=== PATIENT | female | born 1995 | race Caucasian/White ===

== ENCOUNTER 2017-10-21 18:40 | Observation (INO) | payer SELFPAY ==
--- NOTE | 2017-10-21 18:47 | EDPHY ---
H & P Stated Complaint: Abd pain;denies n/v/d or constipation;denies urinary sxs Time Seen by Provider: 10/21/17 18:46 HPI/ROS: HPI: This is a 22-year-old female presents with Chief Complaint: Abd pain;denies n/v/d or constipation;denies urinary sxs Location: Generalized abdomen Quality: Sharp constant pain Duration: Since this morning around 10:00 a.m. Signs and Symptoms: no fever, + nausea, no vomiting, no hematemesis, no blood in stool, + abdominal bloating, no diarrhea, no back pain, no urinary symptoms, no vaginal bleeding/discharge, no indigestion, no chest pain, no shortness of breath Timing: Sudden, intermittent episodes Severity: Moderate to severe Context: Patient reports that this morning around 10:00 a.m. she started experiencing generalized abdominal pain, that has since moved up into the epigastric area, that comes and goes, but is moderate to severe in intensity, nonradiating accompanied with nausea. Denies vomiting/fever/chills/diarrhea/ vaginal discharge/vaginal bleeding. She was on extended control approximately 2 years ago but has since been off. She has not had a menses in a urine have. Follows with OBGYN and was diagnosed with PCOS but never obtained a pelvic ultrasound. She denies any urinary symptoms. She 1st thought that she was experiencing menstrual cramps but after a few hours the pain started to feel different. Last meal was around noon today. Is able to drink liquids though. No history of abdominal surgery. Modifying Factors: No [id number] medications tried Comment: ROS: see HPI Constitutional: No fever, no chills, no weight loss Eyes: No blurred vision Respiratory: No shortness of breath, no cough Cardiovascular: No chest pain, no palpitations Gastrointestinal: + nausea, no vomiting, no diarrhea, no hematemesis, no blood in stool Genitourinary: No dysuria, no blood in urine Extremities: No myalgias, no edema Neurologic: No weakness, no numbness Skin: No rashes, no petechiae Hematologic: No bruising, no bleeding MEDICAL/SURGICAL/SOCIAL HISTORY: Medical history: Generally healthy. Does not take any regular medications. Surgical history: Denies Social history: Employed. CONSTITUTIONAL: Young adult white female, nontoxic appearance, but appears uncomfortable, awake and alert, no obvious distress HEENT: Atraumatic and normocephalic, PERRL, EOMI. Tympanic membranes clear. Oropharynx clear, no exudate and moist pink mucosa. Airway patent. No lymphadenopathy. No meningismus. Cardiovascular: Normal S1/S2, mild tachycardia, regular rhythm, without murmur rub or gallop. PULMONARY/CHEST: Symmetrical and nontender. Clear to auscultation bilaterally. Good air movement. No accessory muscle usage. ABDOMEN: Soft, nondistended, moderate right lower quadrant tenderness, no rebound, no guarding, no peritoneal signs, no masses or organomegaly. No CVAT. EXTREMITIES: 2/2 pulses, strength 5/5, no deformities, no clubbing, no cyanosis or edema. NEUROLOGICAL: no focal neuro deficits. GCS 15. SKIN: Warm and dry, no erythema. no rash. Good capillary refill. Source: Patient Exam Limitations: No limitations - Personal History LMP (Females 10-55): Unknown Current Tetanus Diphtheria and Acellular Pertussis (TDAP): Yes - Medical/Surgical History Other PMH: healthy - Social History Smoking Status: Former smoker Constitutional: Initial Vital Signs Temperature (C) 36.5 C 10/21/17 18:40 Heart Rate 118 H 10/21/17 18:40 Respiratory Rate 18 10/21/17 18:40 Blood Pressure 147/94 H 10/21/17 18:40 O2 Sat (%) 10 L 10/21/17 18:40 O2 Delivery Mode Room Air Allergies/Adverse Reactions: No Known Allergies Allergy (Unverified 10/21/17 18:44) Home Medications: Medication Instructions Recorded NK [No Known Home Meds] 10/21/17 Medical Decision Making - Diagnostics Imaging Results: Imaging Impressions Abdomen Ultrasound 10/21/17 18:53 Impression: 1. Findings compatible with appendicitis with thickened and dilated appendix well-visualized in the right lower quadrant corresponding with tenderness. 2. Increased number of follicles associated with each ovary suspicious for polycystic ovary syndrome. 3. Normal-appearing uterus. Findings discussed with Grisel Bowens at 20:00 hour, 10/21/2017. Pelvic/Renal Ultrasound 10/21/17 18:53 Impression: 1. Findings compatible with appendicitis with thickened and dilated appendix well-visualized in the right lower quadrant corresponding with tenderness. 2. Increased number of follicles associated with each ovary suspicious for polycystic ovary syndrome. 3. Normal-appearing uterus. Findings discussed with Grisel Bowens at 20:00 hour, 10/21/2017. ED Course/Re-evaluation: Labs, urinalysis, pelvic ultrasound to evaluate for ovarian cysts and limited abdominal ultrasound to evaluate for appendicitis ordered Urine negative. Given 1 L normal saline, IV Zofran, IV morphine 4 mg upon arrival with adequate relief. 1905: Labs reviewed and leukocytosis of 17 K noted. Urinalysis shows no signs of infection. Called by Dr. Nation who advised that ultrasound shows 10 mm appendix that is consistent with appendicitis. IV Invanz ordered 1950: ED decision to consult for admission. Spoke with Dr. Gibson, general surgery, regarding appendicitis. Differential Diagnosis: Abdominal pain in a female including but not limited to ovarian cyst, appendicitis, pelvic inflammatory disease, ovarian torsion, urinary tract infection, and appendicitis. - Data Points Laboratory Results: Laboratory Results 10/21/17 18:55 10/21/17 18:55 10/21/17 10/21/17 10/21/17 18:55 18:55 18:55 WBC RBC Hgb Hct MCV MCH MCHC RDW Plt Count MPV Neut % (Auto) Lymph % (Auto) [place] % (Auto) Eos % (Auto) Baso % (Auto) Nucleat RBC Rel Count Absolute Neuts (auto) Absolute Lymphs (auto) Absolute Monos (auto) Absolute Eos (auto) Absolute Basos (auto) Absolute Nucleated RBC Immature Gran % Immature Gran # Sodium 145 mEq/L H mEq/L (134-144) Potassium 3.9 mEq/L mEq/L (3.5-5.2) Chloride 103 mEq/L mEq/L (97-110) Carbon Dioxide 26 mEq/l mEq/l (22-31) Anion Gap 16 mEq/L mEq/L (8-16) BUN 8 mg/dL mg/dL (7-23) Creatinine 0.7 mg/dL mg/dL (0.6-1.0) Estimated GFR > 60 Glucose 94 mg/dL mg/dL (70-100) Calcium 10.3 mg/dL mg/dL (8.5-10.4) Total Bilirubin 0.5 mg/dL mg/dL (0.1-1.4) Conjugated Bilirubin 0.2 mg/dL mg/dL (0.0-0.5) Unconjugated Bilirubin 0.3 mg/dL mg/dL (0.0-1.1) AST 22 IU/L IU/L (14-46) ALT 27 IU/L IU/L (9-52) Alkaline Phosphatase 94 IU/L IU/L (38-126) Total Protein 8.5 g/dL H g/dL (6.3-8.2) Albumin 5.1 g/dL H g/dL (3.5-5.0) Lipase 91 IU/L IU/L (23-300) Beta HCG, Qual NEGATIVE Urine Color YELLOW Urine Appearance MODERATELY TURBID Urine pH 8.0 H (5.0-7.5) Ur Specific [place] 1.017 (1.002-1.030) Urine Protein NEGATIVE (NEGATIVE) Urine Ketones NEGATIVE (NEGATIVE) Urine Blood NEGATIVE (NEGATIVE) Urine Nitrate NEGATIVE (NEGATIVE) Urine Bilirubin NEGATIVE (NEGATIVE) Urine Urobilinogen NEGATIVE EU EU (0.2-1.0) Ur Leukocyte Esterase NEGATIVE (NEGATIVE) Urine Glucose NEGATIVE (NEGATIVE) 10/21/17 18:55 WBC 17.80 10^3/uL H 10^3/uL (3.80-9.50) RBC 5.39 10^6/uL H 10^6/uL (4.18-5.33) Hgb 16.3 g/dL g/dL (12.6-16.3) Hct 47.4 % H % (38.0-47.0) MCV 87.9 fL fL (81.5-99.8) MCH 30.2 pg pg (27.9-34.1) MCHC 34.4 g/dL g/dL (32.4-36.7) RDW 12.5 % % (11.5-15.2) Plt Count 258 10^3/uL 10^3/uL (150-400) MPV 11.7 fL fL (8.7-11.7) Neut % (Auto) 75.0 % H % (39.3-74.2) Lymph % (Auto) 17.0 % % (15.0-45.0) [place] % (Auto) 7.0 % % (4.5-13.0) Eos % (Auto) 0.4 % L % (0.6-7.6) Baso % (Auto) 0.3 % % (0.3-1.7) Nucleat RBC Rel Count 0.0 % % (0.0-0.2) Absolute Neuts (auto) 13.35 10^3/uL H 10^3/uL (1.70-6.50) Absolute Lymphs (auto) 3.02 10^3/uL H 10^3/uL (1.00-3.00) Absolute Monos (auto) 1.24 10^3/uL H 10^3/uL (0.30-0.80) Absolute Eos (auto) 0.07 10^3/uL 10^3/uL (0.03-0.40) Absolute Basos (auto) 0.06 10^3/uL 10^3/uL (0.02-0.10) Absolute Nucleated RBC 0.00 10^3/uL 10^3/uL (0-0.01) Immature Gran % 0.3 % % (0.0-1.1) Immature Gran # 0.06 10^3/uL 10^3/uL (0.00-0.10) Sodium Potassium Chloride Carbon Dioxide Anion Gap BUN Creatinine Estimated GFR Glucose Calcium Total Bilirubin Conjugated Bilirubin Unconjugated Bilirubin AST ALT Alkaline Phosphatase Total Protein Albumin Lipase Beta HCG, Qual Urine Color Urine Appearance Urine pH Ur Specific [place] Urine Protein Urine Ketones Urine Blood Urine Nitrate Urine Bilirubin Urine Urobilinogen Ur Leukocyte Esterase Urine Glucose Medications Given: Discontinued Medications Sodium Chloride (Ns) 1,000 mls @ 0 mls/hr IV EDNOW ONE; Wide Open PRN Reason: Protocol Stop: 10/21/17 18:49 Last Admin: 10/21/17 19:03 Dose: 1,000 mls Morphine Sulfate (Morphine) 4 mg IVP EDNOW ONE Stop: 10/21/17 19:06 Last Admin: 10/21/17 20:01 Dose: Not Given Ondansetron HCl (Zofran) 4 mg IVP EDNOW ONE Stop: 10/21/17 19:00 Last Admin: 10/21/17 19:03 Dose: 4 mg Departure - Departure Disposition: [facility] Clinical Impression: Appendicitis, acute Qualifiers: Acute appendicitis type: with generalized peritonitis Qualified Code(s): K35.2 - Acute appendicitis with generalized peritonitis Condition: Fair
[2017-10-21] MEDS ORDERED: NS 1,000 ML IV ONE ×3 (18:48→20:37)
[2017-10-21] MEDS ORDERED: ONDANSETRON 4 MG/2 ML VIAL IVP ONE (18:59)
[2017-10-21 19:01] LABS: % IMMATURE GRANULYOCYTES 0.3 % (0.0-1.1); ABSOLUTE IMMATURE GRANULOCYTES 0.06 10^3/uL (0.00-0.10); ADD DIFF? NO; ADD MORPH? NO; ADD SCAN? NO; ATYPICAL LYMPHOCYTE FLAG 10 (0-99); FRAGMENT RBC FLAG 0 (0-99); HEMATOCRIT 47.4 % (38.0-47.0); HEMOGLOBIN 16.3 g/dL (12.6-16.3); LEFT SHIFT FLG 0 (0-99); LIPEMIA HEMOLYSIS FLAG 90 (0-99); MEAN CELL HEMOGLOBIN 30.2 pg (27.9-34.1); MEAN CELL HEMOGLOBIN CONCENTR. 34.4 g/dL (32.4-36.7); MEAN CELL VOLUME 87.9 fL (81.5-99.8); MEAN PLATELET VOLUME 11.7 fL (8.7-11.7); PLATELET CLUMPS FLAG 0 (0-99); PLATELET COUNT 258 10^3/uL (150-400); RED BLOOD CELL COUNT 5.39 10^6/uL (4.18-5.33); RED CELL DISTRIBUTION WIDTH 12.5 % (11.5-15.2)
[2017-10-21 19:08] LABS: COLOR YELLOW; LEUKOCYTE ESTERASE,URINE NEGATIVE (NEGATIVE); NITRITE,URINE NEGATIVE (NEGATIVE)
[2017-10-21 19:12] LABS: ALANINE AMINOTRANSFERASE 27 IU/L (9-52); ALBUMIN 5.1 g/dL (3.5-5.0); ALKALINE PHOSPHATASE 94 IU/L (38-126); ANION GAP 16 mEq/L (8-16); ASPARTATE AMINOTRANSFERASE 22 IU/L (14-46); BILIRUBIN,TOTAL 0.5 mg/dL (0.1-1.4); BILIRUBIN-CONJUGATED 0.2 mg/dL (0.0-0.5); BILIRUBIN-UNCONJUGATED 0.3 mg/dL (0.0-1.1); CALCIUM 10.3 mg/dL (8.5-10.4); CARBON DIOXIDE 26 mEq/l (22-31); CHLORIDE 103 mEq/L (97-110); CREATININE 0.7 mg/dL (0.6-1.0); GLOMERULAR FILTRATION RATE > 60; GLUCOSE 94 mg/dL (70-100); POTASSIUM 3.9 mEq/L (3.5-5.2); SODIUM 145 mEq/L (134-144); TOTAL PROTEIN 8.5 g/dL (6.3-8.2)
[2017-10-21] MEDS ORDERED: ERTAPENEM 1 GM VIAL IVP ONE (19:52)
[2017-10-21] MEDS ORDERED: BUPIVACAINE 0.25% 30 ML SDV ONE (20:12)
[2017-10-21] MEDS ORDERED: fentaNYL 100 MCG/2 ML INJ ONE (20:23)
[2017-10-21] MEDS ORDERED: LIDOCAINE 2% 5 ML SDV ONE (20:23)
[2017-10-21] MEDS ORDERED: ONDANSETRON 4 MG/2 ML VIAL ONE (20:23)
[2017-10-21] MEDS ORDERED: ROCURONIUM 50 MG/5 ML VIAL ONE (20:23)
[2017-10-21] MEDS ORDERED: DEXAMETHASONE 4 MG/ML VIAL ONE (20:23)
[2017-10-21] MEDS ORDERED: KETOROLAC 30 MG/1 ML SDV ONE (20:23)
[2017-10-21] MEDS ORDERED: PROPOFOL 200 MG/20 ML VIAL ONE (20:23)
--- NOTE | 2017-10-21 20:37 | PDCONSULT ---
Hooker Inspector Note: CC: Abd Pain HPI: 22 y/o female with one day hx abd pain localizing to the RLQ associated with anorexia and nausea, but no emesis She was seen in the ED by Katie Bowens PA-C and surgical consult was requested PMH: ammenorhea LMP 18 months NKDA + EtOH no tobacco SH: here with parents/22st birthday today FH: NC ROS: chills/rigors this afternoon PE: pleasant young lady in mild distress No scleral icterus/adenopath lungs clear CVS: RRR abd: soft/hypoactive bowel sounds tender RLQ to palpation and percussion/mild guarding +Rovsing's pelvic: deferred wbc 17K IMP: appendicitis REC: appendectomy we discussed the procedure, risks and expected recovery informed consent was obtained Flo Gibson MD, FACS
[2017-10-21] MEDS ORDERED: MIDAZOLAM 2 MG/2 ML VIAL IVP ONE (20:46)
[2017-10-21] MEDS ORDERED: MIDAZOLAM 2 MG/2 ML VIAL ONE (20:49)
--- NOTE | 2017-10-21 20:50 | PDANEPAE ---
ANE History of Present Illness lap nandini BLAYNE Past Medical History - Cardiovascular History Hx Hypertension: No Hx Arrhythmias: No Hx Chest Pain: No Hx Coronary Artery / Peripheral Vascular Disease: No Hx CHF / Valvular Disease: No Hx Palpitations: No - Pulmonary History Hx COPD: No Hx Asthma/Reactive Airway Disease: No Hx Recent Upper Respiratory Infection: No Hx Oxygen in Use at Home: No Hx Sleep Apnea: No - Neurologic History Hx Cerebrovascular Accident: No Hx Seizures: No Hx Dementia: No - Endocrine History Hx Diabetes: No Hypothyroid: No Hyperthyroid: No Obesity: no - Renal History Hx Renal Disorders: No - Liver History Hx Hepatic Disorders: No - Neurological & Psychiatric Hx Hx Neurological and Psychiatric Disorders: No Neurological / Psychiatric History Comment: anxiety ANE Review of Systems Review of Systems: - Exercise capacity METS (RN): 4 METS ANE Patient History - Allergies Allergies/Adverse Reactions: No Known Allergies Allergy (Unverified 10/21/17 18:44) - Home Medications Home Medications: NK [No Known Home Meds] 10/21/17 [Last Taken Unknown] - NPO status NPO Since - Liquids (Date): 10/21/17 NPO Since - Liquids (Time): 12:00 NPO Since - Solids (Date): 10/21/17 NPO Since - Solids (Time): 12:00 - Anes Hx Anes Hx: post operative nausea and vomiting - Smoking Hx Smoking Status: Former smoker ANE Labs/Vital Signs - Labs Result Diagrams: 10/21/17 18:55 10/21/17 18:55 - Vital Signs Blood Pressure: 135/90 Heart Rate: 128 Respiratory Rate: 18 O2 Sat (%): 98 Height: 167.64 cm Weight: 66.678 kg ANE Physical Exam - Airway Mallampati Score: Class 2 Mouth exam: normal dental/mouth exam - Pulmonary Pulmonary: no respiratory distress - Cardiovascular Cardiovascular: regular rate and rhythym - ASA Status ASA Status: I, E
[2017-10-21] MEDS ORDERED: SUGAMMADEX SODIUM 500 MG/5 ML VIAL IVP ONE (21:34)
[2017-10-21] MEDS ORDERED: ALBUTEROL 3 ML DEYVIAL IH PRN (22:16)
[2017-10-21] MEDS ORDERED: NALOXONE HCL 0.4 MG/ML INJ IVP PRN (22:16)
[2017-10-21] MEDS ORDERED: fentaNYL 100 MCG/2 ML INJ IVP PRN (22:16)
[2017-10-21] MEDS ORDERED: NS 500 ML IV PRN (22:16)
[2017-10-21] MEDS ORDERED: HYDROmorphONE/DILAUDID 1 MG/ML INJ IVP PRN (22:16)
[2017-10-21] MEDS ORDERED: ONDANSETRON 4 MG/2 ML VIAL IVP PRN ×2 (22:16→22:25)
--- NOTE | 2017-10-21 22:18 | POSTANESTH ---
Post Anesthetic Evaluation Cardiovascular Status: Normal, Stable Respiratory Status: Normal, Stable Level of Consciousness/Mental Status: Can Participate in Eval Pain Control: Adequate, Prn Tx Ordered Nausea/Vomiting Control: Adequate, Prn Tx Ordered Complications Possibly Related to Anesthesia: None Noted
[2017-10-21] MEDS ORDERED: MEPERIDINE 25 MG/ML SYR ONE (22:20)
[2017-10-21] MEDS: MEPERIDINE 25 MG/ML SYR IVP PRN ×2 (22:21→22:28)
--- NOTE | 2017-10-21 22:23 | POSTOPPROG ---
Post Op Note Date of Operation: 10/21/17 Surgeon: Maximino Gibson (, FACS) Anesthesiologist: Max Leroy MD Anesthesia: GET(General Endotracheal) Pre-op Diagnosis: appendicitis Post-op Diagnosis: same Procedure: appendectomy Findings: early appendicitis Inf/Abcess present in the surg proc area at time of surgery?: Yes Depth: Organ Space
[2017-10-21] MEDS ORDERED: HYDROCODONE/APAP 5/325 TAB PO PRN (22:25)
[2017-10-21] MEDS ORDERED: HYDROmorphone HCL/NS/PF 0.4 MG/2 ML SYR IVP PRN (22:25)
[2017-10-21 23:00] VITALS: RESP 16
[2017-10-21] MEDS: LR 1,000 ML IV SCH (23:37)
[2017-10-21] MEDS: KETOROLAC 15 MG/1 ML SDV IVP SCH (23:37)
--- NOTE | 2017-10-22 02:57 | GOP ---
[f rep st] OPERATIVE REPORT DATE OF OPERATION: 10/21/2017 SURGEON: Maximino Gibson MD, FACS ANESTHESIA: General endotracheal. ANESTHESIOLOGIST: Max Leroy MD. PREOPERATIVE DIAGNOSIS: Acute appendicitis. POSTOPERATIVE DIAGNOSIS: Acute appendicitis. PROCEDURE PERFORMED: Appendectomy. FINDINGS: Acute tip appendicitis with inflammation and early suppuration but no perforation or gangrene. ESTIMATED BLOOD LOSS: 10 cc. DESCRIPTION OF PROCEDURE: After informed consent was obtained, the patient was brought to the operating room and placed under general anesthesia. The abdomen was prepped and draped in the usual fashion. Before proceeding, a time-out and identification of the patient was performed. 0.25% Marcaine was used to infiltrate the abdominal wall lateral to the planned incision. A small transverse incision was made somewhat below McBurney's point in the right lower quadrant, carried through skin and subcutaneous tissues in external oblique fascia. The transverse abdominis and internal oblique muscles were split. The peritoneum was entered. The cecum was mobilized and the appendix grasped with a Katie forceps. It was mobilized in the incision, noted to have inflammation at the tip; the base of the appendix appeared relatively normal. The mesoappendix was clamped, divided and ligated with 2-0 Vicryl ligatures the appendix was from the cecum with a single firing of the SUE stapler and removed from the field. The operative field appeared hemostatic. The cecum was returned to its anatomic position. The wound was irrigated and aspirated. The peritoneum was closed with 2-0 Vicryl suture. Anterior fascia was closed with 0 PDS suture. Subcutaneous tissues were irrigated, aspirated and further infiltrated with the remainder of the 0.25% Marcaine. Subcutaneous tissues were approximated with 3-0 Vicryl suture and the skin was closed with 4-0 Monocryl suture in a subcuticular fashion. Mastisol and Steri-Strips were applied. Needle, sponge, and instrument count correct. COMPLICATIONS: None. /[id number]/MODL MTDD
[2017-10-22 05:11] LABS: % IMMATURE GRANULYOCYTES 0.3 % (0.0-1.1); ABSOLUTE IMMATURE GRANULOCYTES 0.04 10^3/uL (0.00-0.10); ADD DIFF? NO; ADD MORPH? NO; ADD SCAN? NO; ATYPICAL LYMPHOCYTE FLAG 0 (0-99); FRAGMENT RBC FLAG 0 (0-99); HEMATOCRIT 36.8 % (38.0-47.0); HEMOGLOBIN 12.2 g/dL (12.6-16.3); LEFT SHIFT FLG 0 (0-99); LIPEMIA HEMOLYSIS FLAG 80 (0-99); MEAN CELL HEMOGLOBIN CONCENTR. 33.2 g/dL (32.4-36.7); MEAN CELL VOLUME 87.4 fL (81.5-99.8); MEAN PLATELET VOLUME 12.6 fL (8.7-11.7); PLATELET CLUMPS FLAG 0 (0-99); PLATELET COUNT 196 10^3/uL (150-400); RED BLOOD CELL COUNT 4.21 10^6/uL (4.18-5.33); RED CELL DISTRIBUTION WIDTH 12.5 % (11.5-15.2)
[2017-10-22] MEDS: KETOROLAC 15 MG/1 ML SDV IVP SCH (05:58)
[2017-10-22] MEDS: LR 1,000 ML IV SCH (06:03)
--- NOTE | 2017-10-22 06:42 | SOAPPROG ---
SOAP Progress Note Assessment/Plan: Assessment:s/p appendectomy for early appendicitis resting tachycardia/mild anemia-chronic Plan: we discussed diet, activity and wound care discharge home later today FU my office next week 10/22/17 06:40 Subjective: resting comfortably/anxious about her IV/taking only Tramadol for pain Objective: Vital Signs Temp Pulse Resp BP Pulse Ox 37.3 C 106 H 16 104/55 L 98 10/22/17 02:19 10/22/17 02:19 10/22/17 02:19 10/22/17 02:19 10/22/17 02:19 Laboratory Results 10/22/17 04:15 10/21/17 10/22/17 10/23/17 05:59 05:59 05:59 Intake Total 1415 942 Output Total 900 Balance 515 942 - Pending Discharge Pending Discharge Within 24 Hours: Yes Pending Discharge Date: 10/23/17 Pending Discharge Time: 11:00 Physical Exam - Physical Exam General Appearance: anxiety Abdomen: normal bowel sounds, soft, other (surgical dressing dry/intact) Pelvic Exam: deferred Rectal: deferred Neuro/Psych: alert ICD10 Worksheet Patient Problems: Problems Problem Status Onset Appendicitis, acute Acute
[2017-10-22 08:21] VITALS: BP 114/67; PULSE 101; TEMP 98.7; O2SAT 97
[2017-10-22] MEDS ORDERED: ENOXAPARIN 40 MG/0.4 ML SYR SC SCH (09:00)
[2017-10-22] MEDS ORDERED: ERTAPENEM 1 GM VIAL IVP SCH (09:00)
--- NOTE | 2017-10-22 12:20 | ASDISCHSUM ---
Discharge Information Plan Status:Home with No Needs Medically Cleared to Leave: Discharge Date:10/22/2017 11:18 AM CM D/C Disposition:Home, Routine, Self-Care ADT D/C Disposition:Home, Routine, Self-Care Projected Discharge Date:10/22/2017 11:18 AM Transportation at D/C:Family Discharge Delay Reason: Follow-Up Date:10/22/2017 11:18 AM Discharge Slot: Final Diagnosis: Placement Information Patient Contact Information Contact Name:SAM Relationship:Mother Address: Work Phone: City: [facility] Phone: State/Zip Code: Email: Financial Information Financial Class:Self-Pay Primary Plan Desc:SELF PAY Primary Plan Number: Secondary Plan Desc: Secondary Plan Number: Assessment Information Intervention Information
[2017-10-27] MEDS ORDERED: IBUPROFEN 600 MG TAB PO SCH (06:00)
== END 2017-10-22 11:18 | disposition home or self-care (01) ==
LOC: F3E 22:46
PROVIDERS: ADMIT Surgery; ATTEND Surgery
PROC: 0DTJ0ZZ Resection of Appendix, Open Approach (ICD-10-PCS; principal; 2017-10-21 20:45)
DX: K35.80 Unspecified acute appendicitis (principal); N83.8 Other noninflammatory disorders of ovary, fallopian tube and broad ligament
CPT/HCPCS: 96374; G0378; J0171; J1100; J1335; J1885; J2250; J2405; J2704; J3010